=== PATIENT | female | born 1995 | race Caucasian/White ===

== ENCOUNTER 2017-03-26 19:29 | Emergency (ER) | payer OTHER ==
[~2017-03-26] VITALS: Ht 160 cm; Wt 81.8 kg
[2017-03-26 19:33] VITALS: BP 138/89; PULSE 87; RESP 15; O2SAT 97
== END 2017-03-26 20:58 | disposition left against medical advice (07) ==
LOC: SED 19:29
DX: Z53.21 Procedure and treatment not carried out due to patient leaving prior to being seen by health care provider (principal)